=== PATIENT | female | born 1985 | race Caucasian/White ===

== ENCOUNTER 2021-07-12 01:35 | Day surgery (SDC) | payer OTHER, SELFPAY ==
[2021-07-05 12:43] VITALS: BMI 28.0
--- NOTE | 2021-07-11 10:58 | WPDANESEPPF ---
Anes - Initial Pre Proc Eval Procedure: Operation Date: 07/12/21 09:00 Proposed Procedures p Abdominoplasty with Liposuction - Berhane Crandall MD s Bilateral Breast Augmentation Mastopexy - Berhane Crandall MD Date/Time: 07/11/21 10:58 Surgeon: Berhane Crandall MD Pre Op Diagnosis: micromastia, skin laxity Patient Data Age: 36 Gender: F Height: 1.65 m Weight: 76.4 kg Allergies Allergy/AdvReac Type Severity Reaction Status Date / Time No Known Allergies Allergy Unverified 07/12/21 07:55 Home Medications Medication Instructions Recorded Confirmed Type escitalopram oxalate 20 mg tablet 20 mg PO DAILY 05/31/21 07/12/21 History docusate sodium 100 mg capsule 100 mg PO DAILY #14 cap 07/05/21 07/12/21 Rx psyllium husk [Metamucil] 0.52 g PO HS 07/05/21 07/12/21 History carisoprodol 350 mg tablet 350 mg PO TID PRN #21 tablet 07/09/21 07/12/21 Rx diazepam 5 mg tablet 5 mg PO TID PRN #15 tablet 07/09/21 07/12/21 Rx oxycodone-acetaminophen 5 mg-325 1 tablet PO Q6H PRN #15 tablet 07/09/21 07/12/21 Rx mg tablet escitalopram oxalate 20 mg PO DAILY 07/12/21 07/12/21 History Patient hx anesthesia problems: none Family hx anesthesia problems: none [facility] Past Medical History Medical History (Updated 07/11/21 @ 10:59 by Dov Cano MD) Anxiety Micromastia Overweight (BMI 25.0-29.9) Skin laxity Family History Family History Mother Hypothyroidism Grandparent Hypertension Social History Social History Smoking status: Never smoker Alcohol intake: current Living arrangements: with family Spiritual care concerns: No Anes - Eval Final PreProcedure Day of Procedure 07/11/21 10:58 Patient weight: overweight Heart: regular rate and rhythm Lungs: clear to auscultation and normal air movement Airway: Mallampati scale class II Neurological: alert and oriented Last oral intake: >/= 8 hours ASA classification: II Emergent: no Anesthetic plan: proceed Anesthesia type and monitoring: general LMA Informed Consent: The patient's anesthetic plan and its attendant risks and benefits were discussed with the patient/family/POA. Questions were solicited and answers provided to the satisfaction of the patient/family/POA.
[2021-07-12] VITALS (10 sets, daily range): BP systolic 102–117; BP diastolic 59–77; PULSE 64–95; RESP 13–22; TEMP 36.7–37.4; O2SAT 96–100
--- NOTE | 2021-07-12 06:57 | W.PM.PROC2 ---
Procedure Note - Detailed Date of Procedure 07/12/21 Pre-op Diagnosis micromastia, skin laxity Post-op Diagnosis same Procedure Performed 1. Augmentation Mastopexy 2. Progressive tension abdominoplasty with suction lipectomy Surgeon Berhane Crandall MD Anesthesia general Findings Inverted T, Superior Pedicle Mastopexy Bilateral Augmentation Mammaplasty Carmen Padilla SoftTouch [cc] Right - REF# [id number] Left - REF# [id number] SN [id number] Lipoaspirate 1200 cc Abdominal tissue removed 1292 grams Description of Procedure She is here today for the above procedures. Previously and again today the risks, benefits, alternatives were discussed in extensive detail. I wanted them to be very realistic about the risks involved as well as expectations. We discussed aftercare and what to monitor for. I was very upfront about the risks of wound breakdown leading to loss of skin, open wounds, and need for additional procedures with permanent abdominal deformity. We discussed DVT/PE risks and management. Made sure answered all of their questions to their satisfaction today and consent was obtained. Marked in the preoperative holding area with her verification. The patient was taken to the operating room placed supine on the operating table. Anesthesia was provided by anesthesiology. A surgical time-out was taken. Breast We cleansed the skin and 1% lidocaine and 0.25% Marcaine with epinephrine was used anesthetize as a field block. She was prepped and draped in a standard sterile fashion. Tegaderm nipple Marcos were placed. A 15 blade used to make an incision superior to the the inframammary fold. I left a de-epithelialized inferior flap at the IMF in order to protect the T junction. Dissection was continued at 45 degree angle until the chest wall as identified. I incised the pectoralis major along its inferior border and completely released the inferior border leaving the medial border intact. I created a subpectoral pocket in the appropriate dimensions based on our preoperative planning for the implant. I then copiously irrigated with saline solution and verified a strict hemostasis. Next the use a triple antibiotic and Betadine containing solution to irrigate the pocket. I washed my gloves with the triple antibiotic and Betadine solution. We washed the implant immediately upon opening it with this solution and only opened it when we needed it. I used implant funnel and no-touch technique. The implant was introduced into the pocket using the funnel. Having verified positioning of the implant this was closed using 2-0 Vicryl. I then tailor tacked the breast into position based on preoperative markings. Placed her in a sitting position. Marked out the nipple-areolar complex at 38 mm. This is based on preoperative planning as well as intraoperative observations and measurements which were in full agreement. She was placed supine. I de-epithelialized the superior pedicle. Resected the redundant anterior tissue. Elevated medial and lateral flaps making sure we left the implant protected. I closed the vertical incision using 2-0 Vicryl. Along the IMF with a 1 Stratafix. This is followed by 3-0 Monocryl along the vertical around the areola. 3-0 Stratafix along the IMF. Finally everything was closed using running subcuticular 4-0 Monocryl and tissue glue. Abdomen I placed the patient in a flexed position to verify the upper and lower markings would reach. I then placed supine. A thorough abdominal examination was completed. Stab incisions were made and tumescent solution infiltrated. I completed suction lipectomy based on S.A.F.E. technique in multiple planes and passes. For supine and then turning to lateral decubitus positions to around rolling pinch test based on preoperative planning intraoperative observations. This was a 5 mm basket cannula. Then placed supine. A 10 blade was used to make the upper incision. I
[2021-07-12 07:46] LABS: Urine Cotinine NEGATIVE
[2021-07-12] MEDS: LACTATED RINGERS 1,000 ML 30 ML IV CONT ×2 (08:05→14:59)
--- NOTE | 2021-07-12 08:11 | WPDHPUPDATE1 ---
History and Physical Update Update Date/Time: 07/12/21 08:11 History and Physical has been reviewed, including an updated exam of the patient. There are NO changes in the patient's condition. Risks, benefits, and alternatives have been discussed and questions answered. Patient agrees to proceed with procedure.
[2021-07-12] MEDS: TRANEXAMIC ACID 1,000MG/ISO100 1,000 MG/100 ML BAG 200 MG IVPB (08:45)
[2021-07-12] MEDS: ceFAZolin 2 GM/D5W 50 ML 2 GM/50 ML BAG IVPB (08:45)
[2021-07-12] MEDS: BUPIVACAINE HCL 0.25% PF 30 ML VIAL INFILTRATE (10:10)
[2021-07-12] MEDS: LIDO 1%/EPINEPHRINE 1:100,000 50 ML VIAL 40 ML INFILTRATE (10:11)
--- NOTE | 2021-07-12 10:38 | SUR.OPER ---
Right Breast 405cc Lot: [id number] Expiration: 02-13-2026 Left Breast 405cc Lot: [id number] Expiration: 02-13-2026
[2021-07-12] MEDS: ceFAZolin SODIUM 1 GM VIAL IV PUSH (12:45)
[2021-07-12] MEDS: BUPIVACAINE/EPINEPHRINE 0.25% 50 ML VIAL INFILTRATE ×2 (12:56→13:06)
[2021-07-12] MEDS: LACTATED RINGERS IRRIG 1,000 ML, LIDOCAINE HCL 1% LOCAL INJ 50 ML, EPINEPHrine HCL INJ ... INFILTRATE (13:11)
[2021-07-12] MEDS: fentaNYL CITRATE INJ (*CRX) 100 MCG/2 ML VIAL 25 MCG IV PUSH ×3 (15:12→15:26)
[2021-07-12] MEDS: HYDROmorphone HCL INJ (*CRX) 1 MG/ML SYR 0.5 MG IV PUSH ×4 (15:35→16:34)
[2021-07-12] MEDS: LACTATED RINGERS 1,000 ML 125 ML IV CONT (17:17)
[2021-07-12] MEDS: MORPHINE SULFATE (*CRX) 2 MG/ML INJ IV PUSH (17:18)
--- NOTE | 2021-07-12 17:26 | OBPPTRN ---
164 Patient transferred to post room #289 via bed. Oriented to unit, room, information board, admission packet and security measures. Patient verbalizes understanding.
[2021-07-12] MEDS: carisoprodoL (*CRX) 350 MG TABLET PO (18:37)
[2021-07-12] MEDS: oxyCODONE/ACETAMINOPHEN (*CRX) 5-325 MG TABLET PO (18:38)
[2021-07-12] MEDS: ENOXAPARIN 40 MG/0.4 ML SYRINGE SUB-Q (20:51)
[2021-07-12] MEDS: DOCUSATE SODIUM 100 MG CAPSULE PO (20:51)
[2021-07-12] MEDS: diazePAM (*CRX) 5 MG TABLET PO (20:53)
[2021-07-13] VITALS: BP 89/51; PULSE 56; RESP 18; TEMP 36.9
[2021-07-13] MEDS: carisoprodoL (*CRX) 350 MG TABLET PO ×3 (00:07→09:17)
[2021-07-13] MEDS: oxyCODONE/ACETAMINOPHEN (*CRX) 5-325 MG TABLET PO ×3 (00:08→11:37)
[2021-07-13] MEDS: LACTATED RINGERS 1,000 ML 125 ML IV CONT (00:16)
[2021-07-13] MEDS: ONDANSETRON INJ 4 MG/2 ML VIAL IV PUSH (00:19)
[2021-07-13 01:30] VITALS: BP 86/50; PULSE 62
[2021-07-13 01:45] VITALS: BP 104/48; PULSE 58
[2021-07-13 05:00] VITALS: BP 100/61; PULSE 75; RESP 18; TEMP 37; O2SAT 100
--- NOTE | 2021-07-13 06:23 | WPDPN ---
Progress Note: A&P Assessment and Plan (1) Skin laxity: Code(s): L57.4 - Cutis laxa senilis Status: Acute Assessment and Plan: She is doing very well after bilateral augmentation mastopexy, progressive tension abdominoplasty, and suction lipectomy of abdomen and flank. Will discharge home. Follow up in 1 week. Today we had a lengthy discussion about the care. What monitor for. This was a lengthy open-ended conversation making sure she was well informed of her activity limitations, signs and symptoms to monitor for, when to dial 911 / proceed to the emergency room. Made sure answered all of her questions to her satisfaction. She was able to voice a clear understanding. I will see her back. She will call with any questions or concerns in the meantime. (2) Micromastia: Code(s): N64.82 - Hypoplasia of breast Status: Acute (3) Breast ptosis: Code(s): N64.81 - Ptosis of breast Status: Acute Subjective Date/time seen: 07/13/21 06:10 She states overnight she has done well. Pain controlled. No fevers or chills. No nausea vomiting. No shortness of breath. No chest pain. No calf tenderness. She has ambulated. Review of Systems Review of Systems: All systems reviewed & are unremarkable except as noted in HPI and below Exam Narrative: Alert and oriented no obvious distress. Easily able to have a conversation. Respiratory is unlabored. Bilateral breasts are soft. No signs of infection. No hematoma. No seroma. Good color and capillary refill. Abdomen is healing well. No signs of infection. No hematoma. No seroma. Good color and capillary refill. No calf tenderness. Negative Homans. Objective Data Vital Signs Vital Signs: Vital Signs - 24 hr 07/12/21 07:16 07/12/21 14:58 07/12/21 15:13 Temperature 36.7 C 37.1 C Pulse Rate 85 95 84 Respiratory Rate 20 16 14 Blood Pressure 117/65 109/59 L 107/68 Pulse Oximetry 99 100 100 07/12/21 15:28 07/12/21 15:43 07/12/21 15:58 Temperature Pulse Rate 81 64 66 Respiratory Rate 16 17 13 Blood Pressure 108/70 105/77 104/68 Pulse Oximetry 98 96 97 07/12/21 16:13 07/12/21 16:28 07/12/21 17:29 Temperature 37.4 C Pulse Rate 65 71 74 Respiratory Rate 22 H 16 16 Blood Pressure 108/74 102/67 109/64 Pulse Oximetry 98 98 98 07/12/21 18:30 07/13/21 00:00 07/13/21 01:30 Temperature 37.2 C 36.9 C Pulse Rate 70 56 L 62 Respiratory Rate 18 18 Blood Pressure 109/71 89/51 L 86/50 L Pulse Oximetry 100 07/13/21 01:45 07/13/21 05:00 Temperature 37.0 C Pulse Rate 58 L 75 Respiratory Rate 18 Blood Pressure 104/48 L 100/61 Pulse Oximetry 100 Intake/Output Intake/Output: Intake & Output 07/10/21 07/11/21 07/12/21 07/13/21 23:59 23:59 23:59 23:59 Intake Total 1300 2500 Output Total 125 1900 Balance 1175 600 Meds/Results Medications: Active Medications Generic Name Dose Route Start Last Admin Trade Name Freq PRN Reason Stop Dose Admin Carisoprodol 350 mg 07/12/21 18:00 07/13/21 05:54 Carisoprodol (*Crx) 350 Mg Tablet PO 350 mg Q6HR EDITH Administration Diazepam 5 mg 07/12/21 14:47 07/12/21 20:53 Diazepam (*Crx) 5 Mg Tablet PO 5 mg TID PRN Administration Anxiety Docusate Sodium 100 mg 07/12/21 21:00 07/12/21 20:51 Docusate Sodium 100 Mg Capsule PO 100 mg Q12HR EDITH Administration Enoxaparin Sodium 40 mg 07/12/21 21:00 07/12/21 20:51 Enoxaparin 40 Mg/0.4 Ml Syringe SUB-Q 40 mg DAILY EDITH Administration Escitalopram Oxalate 20 mg 07/13/21 09:00 Escitalopram Oxalate 10 Mg Tablet PO DAILY EDITH Morphine Sulfate 2 mg 07/12/21 14:47 07/12/21 17:18 Morphine Sulfate (*Crx) 2 Mg/Ml Inj IV PUSH 2 mg Q2H PRN Administration Pain Ondansetron HCl 4 mg 07/12/21 14:47 07/13/21 00:19 Ondansetron Inj 4 Mg/2 Ml Vial IV PUSH 4 mg Q6H PRN Administration Nausea Oxycodone/Acetaminophen 1 - 2 tablet 0
--- NOTE | 2021-07-13 06:26 | PM.DS ---
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 She has done very well postoperatively. Will discharge home. Follow up in 1 week. Call with any questions or concerns. Time Spent with Patient Time attestation: Total time spent providing and/or coordinating discharge services: Exam Narrative: Alert and oriented no obvious distress. Easily able to have a conversation. Respiratory is unlabored. Bilateral breasts are soft. No signs of infection. No hematoma. No seroma. Good color and capillary refill. Abdomen is healing well. No signs of infection. No hematoma. No seroma. Good color and capillary refill. No calf tenderness. Negative Homans. DS: Data Data Completed and Pending Labs on day of discharge: Labs from last 24 hours 07/12/21 07:14 Cotinine Negative Discharge Plan Discharge Patient Disposition: Home, Self-Care Discharge Instructions: POST OPERATIVE DISCHARGE INSTRUCTIONS BERHANE CRANDALL M.D. [facility] [address] [place] [address] [address] for 24 hours after anesthesia and while you are taking pain medication. Take all prescribed medication as directed Diet as tolerated. Begin gentle shoulder rolls and arm stretches 10 times per hour. No lifting or activity that raises blood pressure for 48 hours. Regular walking / ambulation. No showering until directed to. No pools or tubs for 2 weeks. No straining or lifting more than 20 pounds for 6 weeks. Slowly stand up straight as tolerated. Call with any questions or concerns. After 24 hours you may remove the dressings.. At this point my may shower. Do not take pain medication before showering as the combination of medication and heat may cause you to feel dizzy or pass out. Let soap and water run over your incisions. Do not scrub or directly wash your incision. Replace the surgical bra and wear it 23 hours per day. If you have any questions or concerns, please call the office . If it is after hours you will be directed to the [facility]. Shortness of breath, chest pain, or other medical emergency dial 911 / proceed to the Emergency Room. Stand Alone Forms: General Discharge Instructions Follow-up/Referrals: Berhane Crandall MD [Physician] - 1 Week Discharge Medications: Continued escitalopram oxalate [Lexapro] 20 mg tablet 20 mg PO DAILY RF: 0 docusate sodium [Colace] 100 mg capsule 100 mg PO DAILY Qty: 14 RF: 0 carisoprodol [Soma] 350 mg tablet 350 mg PO TID PRN (Reason: muscle pain) Qty: 21 RF: 0 oxycodone-acetaminophen [Percocet] 5-325 mg tablet 1 tablet PO Q6H PRN (Reason: pain) Qty: 15 RF: 0 diazepam [Valium] 5 mg tablet 5 mg PO TID PRN (Reason: anxiety) Qty: 15 RF: 0 psyllium husk [Metamucil] 0.52 gram Capsule 0.52 g PO HS RF: 0 escitalopram oxalate 20 mg tablet 20 mg PO DAILY RF: 0
[2021-07-13 07:55] VITALS: BP 103/65; PULSE 83; RESP 18; TEMP 37.3; O2SAT 97
[2021-07-13] MEDS: DOCUSATE SODIUM 100 MG CAPSULE PO (09:17)
[2021-07-13] MEDS: ESCITALOPRAM OXALATE 10 MG TABLET 20 MG PO (09:17)
[2021-07-13] MEDS: diazePAM (*CRX) 5 MG TABLET PO (09:17)
[2021-07-13] MEDS: ENOXAPARIN 40 MG/0.4 ML SYRINGE SUB-Q (09:18)
--- NOTE | 2021-07-13 09:24 | WPDANESPN ---
Anes - Prog Note Post-Op Date/Time: 07/13/21 09:24 Cardiovascular status: normal Respiratory status: normal Airway patency: baseline Mental status: baseline Post-Op hydration status: normal Vital Signs: Last Vital Signs Temp 37.3 C 07/13/21 07:55 Pulse 83 07/13/21 07:55 Resp 18 07/13/21 07:55 BP 103/65 07/13/21 07:55 Pulse Ox 97 07/13/21 07:55 Pain Score (VAS): 0 I/O: Intake & Output 07/12/21 07/13/21 07/13/21 23:59 07:59 15:59 Intake Total 650 2500 Output Total 125 1900 Balance 525 600 Post-procedural complaints: none Patient Feedback: Patient satisfied with anesthetic care.
== END 2021-07-13 12:03 | disposition home or self-care (01) ==
LOC: ANHSURGERY 07:04 → ANHOB2 17:05
PROVIDERS: Visit Provider Surgery Plastic and Reconstructive Surgery
PROC: (CPT 19325; principal; 2021-07-12 09:00)
PROC: (CPT 19316; 2021-07-12 09:00)
DX: Z41.1 Encounter for cosmetic surgery (principal); L57.4 Cutis laxa senilis; N64.81 Ptosis of breast; N64.82 Hypoplasia of breast; F41.9 Anxiety disorder, unspecified; Z79.899 Other long term (current) drug therapy
CPT/HCPCS: 19325; 19316; 15877; 15830; 15847; 80307; 99199; A9270; J0171; J0330; J0690; J1100; J1170; J1580; J1650; J2250; J2270; J2405; J2704; J3010; J7120